=== PATIENT | female | born 1945 | race Caucasian/White ===

== ENCOUNTER → 2016-07-26 | Outpatient (CLI) | payer OTHER ==
[2016-07-26 13:51] LABS: THYROID STIMULATING HORMONE 0.212 uIu/ml (0.300-4.500)
== END | disposition home or self-care (01) ==
LOC: C.LABMFLN 10:28
PROVIDERS: ATTEND Family Medicine
DX: E78.00 Pure hypercholesterolemia, unspecified (principal); E89.0 Postprocedural hypothyroidism

== ENCOUNTER → 2016-09-16 | Outpatient (CLI) | payer OTHER | END | disposition home or self-care (01) | LOC: C.LABMFLN 12:18 | PROVIDERS: ATTEND Family Medicine | DX: E05.00 Thyrotoxicosis with diffuse goiter without thyrotoxic crisis or storm (principal) ==

== ENCOUNTER → 2016-12-12 | Outpatient (CLI) | payer OTHER ==
--- NOTE | 2016-12-12 10:38 | DIAGNOSTIC IMAGING REPORT ---
LUMBAR SPINE W/O CONTRAST CLINICAL HISTORY: 71-year-old female with history of right lumbar radiculopathy. TECHNIQUE: Multisequence, multiplanar MR imaging of the lumbar spine was performed without the use of intravenous contrast. COMPARISON: None. FINDINGS: Vertebral bodies maintain normal height, bone marrow signal intensity, and alignment. Intervertebral discs are preserved. No abnormal signal intensity within the disks or facet joints. Mild disc bulges present at L3-4 through L5-S1 with only mild mass effect on the ventral thecal sac. Additional multilevel degenerative changes as detailed below: T12-L1: Normal. L1-2: Normal. L2-3: Osseous excrescence arising from the right facet joint results in effacement of the right lateral recess and displacement of the cauda equina to the left. Mass effect on the transiting right nerve rootlets. Overall moderate spinal canal stenosis. Facet hypertrophy present without significant neural foraminal narrowing. L3-4: Facet arthropathy and ligamentum flavum hypertrophy in combination with the mild bulge result in mild bilateral neural foraminal narrowing. No significant spinal canal narrowing. L4-5: More severe facet arthropathy and ligamentum flavum hypertrophy in combination with the mild disc bulge result in mild to moderate bilateral neural foraminal narrowing, greater on the left. Abutment of the exiting left L4 nerve root. No significant spinal canal narrowing. L5-S1: Facet arthropathy in combination with mild disc bulge results in mild right and severe left neuroforaminal narrowing. Significant mass effect on the exiting left L5 nerve root. No significant spinal canal narrowing. The spinal cord ends in good position at L1. Cauda equina normal other than mass effect on the transiting right nerve rootlets as detailed above. Paraspinal soft tissues normal. Mild nonspecific infiltration of the subcutaneous tissue of the lower lumbar region. Extrahepatic biliary ductal dilatation noted with the common duct measuring up to 12 mm at the level of the pancreatic head. IMPRESSION: 1. Osseous excrescence arising from the right facet joint at L2-3 results in moderate spinal canal stenosis and mass effect on the transiting right nerve roots above. 2. Multilevel degenerative changes most severe at L4-5 and L5-S1 with varying degrees of neural foraminal narrowing as detailed above. Abutment of the exiting left L4 and L5 nerve roots. 3. Extrahepatic biliary ductal dilatation with the common duct measuring up to 12 mm at the level of the pancreatic head. This is incompletely evaluated. Electronically signed by: Douglas Welch M.D. 12/12/2016 10:37 AM Dictated Date/Time: 12/12/2016 10:25 AM
== END | disposition home or self-care (01) ==
LOC: C.MRIBC 09:24
PROVIDERS: ATTEND Family Medicine
DX: M54.16 Radiculopathy, lumbar region (principal); M48.06 Spinal stenosis, lumbar region; M47.816 Spondylosis without myelopathy or radiculopathy, lumbar region; M47.817 Spondylosis without myelopathy or radiculopathy, lumbosacral region

== ENCOUNTER → 2016-12-19 | Outpatient (CLI) | payer OTHER ==
--- NOTE | 2016-12-19 15:42 | MAMMOGRAPHY REPORT ---
BILATERAL DIGITAL SCREENING MAMMOGRAM TOMOSYNTHESIS WITH CAD: 12/19/2016 CLINICAL HISTORY: Routine screening. Patient has no complaints. TECHNIQUE: Breast tomosynthesis in addition to standard 2D mammography was performed. Current study was also evaluated with a Computer Aided Detection (CAD) system. COMPARISON: Comparison is made to exams dated: 12/14/2015 mammogram, 06/18/2013 mammogram, 06/06/2011 ma mmogram, 04/04/2010 mammogram, 04/03/2009 mammogram - [facility], and 03/31/2008. BREAST COMPOSITION: There are scattered areas of fibroglandular density in both breasts. FINDINGS: There are possible faint grouped microcalcifications in the central left breast, for which additional spot magnification views are recommended. There are a few other benign rim calcifications scattered in the breasts. No suspicious mass, develop ing asymmetry or architectural distortion. IMPRESSION: ACR BI-RADS CATEGORY 0: INCOMPLETE EVALUATION: NEED ADDITIONAL IMAGING EVALUATION The possible grouped microcalcifications in the left central breast need additional evaluation. The patient will be called to schedule an appointment. Approximately 10% of breast cancers are not detected with mammography. A negative mammographic report should not delay biopsy if a clinically suggestive mass is present. Nedra Mahoney M.D. ay/:12/19/2016 15:20:11 Wildlife Policy Professional: Marquita MAYORGA)(M), [facility] letter sent: Addl Imaging 0 BI-RADS Code: ACR BI-RADS Category 0: Incomplete Evaluation: Need Additional Imaging Evaluation
== END | disposition home or self-care (01) ==
LOC: C.MAMM 11:03
PROVIDERS: ATTEND Obstetrics & Gynecology
DX: Z12.31 Encounter for screening mammogram for malignant neoplasm of breast (principal)

== ENCOUNTER → 2016-12-27 | Outpatient (CLI) | payer OTHER | END | disposition home or self-care (01) | LOC: C.PAPS 15:29 | PROVIDERS: ATTEND Obstetrics & Gynecology | DX: Z12.4 Encounter for screening for malignant neoplasm of cervix (principal); N95.2 Postmenopausal atrophic vaginitis ==

== ENCOUNTER → 2017-01-01 | Outpatient (CLI) | payer OTHER ==
--- NOTE | 2017-01-01 13:43 | MAMMOGRAPHY REPORT ---
UNILATERAL LEFT DIGITAL DIAGNOSTIC MAMMOGRAM: 01/01/2017 CLINICAL HISTORY: 71 year-old woman called back from screening mammography for possible new microcalc ifications in the left breast. TECHNIQUE: Spot magnification left CC and ML views were obtained. COMPARISON: Comparison is made to exams dated: 12/19/2016 mammogram, 12/14/2015 mammogram, 06/18/2013 m ammogram, 06/06/2011 mammogram, 04/04/2010 mammogram, and 04/03/2009 mammogram - [facility]. BREAST COMPOSITION: There are scattered areas of fibroglandular density in the left breast. FINDINGS: There are 2 small groupings of punctate and amorphous microcalcifications. The first grou ping is located in the lower outer anterior left breast, measuring 2.6 mm, and the second loose group ing is in the central left breast measuring 5.5 mm. No associated architectural distortion or obviou s mass. When comparing back to prior available mammograms, these were not definitely seen on the bert or mammograms, particularly the 2013 mammogram. Definitive characterization with stereotactic guided biopsy 2 is recommended. IMPRESSION: ACR BI-RADS CATEGORY 4B: INTERMEDIATE SUSPICION FOR MALIGNANCY Left breast stereotactic guided biopsy 2 is recommended for new clusters of punctate microcalcificat ions in the central and lower outer anterior left breast. These results and recommendations were discussed with the patient at the time of the exam. She tenta tively scheduled the left breast stereotactic biopsies prior to leaving our department. Approximately 10% of breast cancers are not detected with mammography. A negative mammographic report should not delay biopsy if a clinically suggestive mass is present. Nedra Mahoney M.D. ay/:01/01/2017 11:50:12 Gleason Gear Generator: Marquita SMALL(Dominique)(Julia), [facility] letter sent: Abnormal 4/5 BI-RADS Code: ACR BI-RADS Category 4B: Intermediate Suspicion For Malignancy
== END | disposition home or self-care (01) ==
LOC: C.MAMM 10:50
PROVIDERS: ATTEND Obstetrics & Gynecology
DX: R92.0 Mammographic microcalcification found on diagnostic imaging of breast (principal)

== ENCOUNTER → 2017-01-22 | Outpatient (CLI) | payer OTHER ==
--- NOTE | 2017-01-22 09:25 | Discharge Instructions ---
Discharge Instructions Procedure Procedure Date: Jan 22, 2017. Reason for visit: Left Microcalcs. Discharge Discharge Date: Jan 22, 2017. Discharge Diagnosis: post left breast stereotactic guided biopsy x 2 Instructions Activity Recommendations: Additional Limitations (see below) Return to School/Work: no limitations Recommended Home Diet: No Limitations Provider Instructions: ACTIVITY RECOMMENDATIONS: * No lifting, pushing, pulling or exercising the affected side for three days. RETURN TO SCHOOL/WORK: * You may return to work/school after the procedure, but do not perform any strenuous activities for 24 to 48 hours. MEDICATIONS: * Tylenol (two 325 mg) every four to six hours if needed for mild pain (if not allergic to Tylenol). DIET: * Resume previous diet. SPECIAL CARE INSTRUCTIONS: * Keep biopsy site dry for 24 hours. May shower after 24 hours, but do not soak (bathe) incision. * May remove Tegaderm (plastic patch) tomorrow AFTER showering. * Leave the steri-strips on for one week. Allow the steri-strips to fall off by themselves. If not off after one week, you may remove them. You may place a Bandaid crosswise over the strips, if desired. * Apply ice 10 minutes on and 10 minutes off as needed. * Wear a bra at bedtime to sleep more comfortably for 2-3 days. * Your referring physician should have the results after approximately 5 to 7 business days. * Call for unusual bleeding, fever, drainage, etc or if you have any questions call [phone] during normal business hours or after hours call Dr Mahoney, . FOLLOW UP VISIT: Follow-up with Referring Physician as scheduled. [facility] Recommendations: Call your doctor if: * Temperature above 101 degrees * Pain not relieved by pain medicine ordered * There is increased drainage or redness from any incision * You have any unanswered questions or concerns. Your Doctors Instructions noted above were prepared by provider Nedra Mahoney. Patient Signature Section: Patient Instructions Signature Page Stephanie Smith Patient (or Guardian) Signature/Date: I have read and understand the instructions given to me by my caregivers. Caregiver/RN/Doctor Signature/Date: The above-named patient and/or guardian has received patient instructions on this date. + Original Patient Signature Page (only) stays with chart. Please make copy for patient.
--- NOTE | 2017-01-22 16:02 | MAMMOGRAPHY REPORT ---
UNILATERAL LEFT DIGITAL DIAGNOSTIC MAMMOGRAM TOMOSYNTHESIS: 01/22/2017 CLINICAL HISTORY: Status post left breast stereotactic guided biopsy 2. Please refer to the report from left breast stereotactic biopsy performed at the same time for full d etail. IMPRESSION: POST PROCEDURE IMAGING FOR MARKER PLACEMENT Please refer to the report from left breast stereotactic biopsy performed at the same time for full d etail. Approximately 10% of breast cancers are not detected with mammography. A negative mammographic report should not delay biopsy if a clinically suggestive mass is present. Nedra Mahoney M.D. ay/:01/22/2017 09:41:03 Senior Systems Software Engineer: Emily SMALL(R)(M), [facility] BI-RADS Code: Post Procedure Imaging For Marker Placement
--- NOTE | 2017-01-22 16:02 | MAMMOGRAPHY REPORT ---
STEREOTACTIC GUIDED BIOPSY: 01/22/2017 CLINICAL HISTORY: 2 clusters of indeterminate microcalcifications in the lower outer anterior left br east and central left breast. Patient presented for stereotactic biopsy 2. Please refer to the report from left breast stereotactic biopsy performed at the same time for full d etail. IMPRESSION: STEREOTACTIC GUIDED BIOPSY Please refer to the report from left breast stereotactic biopsy performed at the same time for full d etail. Nedra Mahoney M.D. ay/:01/22/2017 09:40:26 Baseball Umpire For [employer]: Emily SMALL(Dominique)(M), [facility]
--- NOTE | 2017-01-22 16:02 | MAMMOGRAPHY REPORT ---
MULTIPLE STEREOTACTIC GUIDED BIOPSIES LEFT BREAST: 01/22/2017 CLINICAL HISTORY: 2 clusters of indeterminate faint punctate microcalcifications in the central left breast and lower outer anterior breast. Patient presented for stereotactic guided biopsy 2. PATIENT CONSENT: After explaining the risks, benefits and alternatives of the procedure to the patien t, informed consent was obtained both verbally and in writing. Specific risks include: Bleeding, inf ection, puncture of adjacent structure, pain, nontarget biopsy, sampling error, metal allergy and med ication reaction. PROCEDURE DESCRIPTION: A time-out was performed and the left breast was confirmed as the site of biop sy. The patient was placed prone on the stereotactic biopsy table and the breast was placed in CC fro m below compression. A physician office rep image was obtained that demonstrated both clusters of calcifications in question. They are amenable to sterotactic biopsy. Then +15 and -15 stereo pair images were obtain ed. First, the microcalcifications in the central left breast were identified and targeted for biops y, utilizing the coordinates obtained by the computer. The skin was prepped with Betadine. 1% Lidoca ine with and without epinipherine was administered as local anesthesia. A small skin incision was mad e. Through the incision, the needle was inserted to the depth determined by the computer. 6 samples were obtained using a [employer] Eviva 9-gauge vacuum-assisted biopsy device. The specimen radiograph demo nstrated a paucity of calcifications in the samples therefore 6 additional core biopsy samples were o btained. The second round of samples demonstrated several hardware supplies sales representative microcalcifications, theref ore, a dumbbell shaped metallic marker was placed at the biopsy site. There was no immediate complica tion. Hemostasis was achieved after several minutes of manual compression. The samples were sent to pathology in two appropriately labeled containers, "with calcifications" and "without calcifications" . All of the samples were obtained from the same single biopsy site. Then the faint clustered punctate microcalcifications in the lower outer anterior left breast were id entified and targeted for biopsy. Additional 1% buffered lidocaine with and without epinephrine was administered. A small skin incision was made. Through the incision, the needle was inserted to the d epth determined by the computer. 7 samples were obtained using a [employer] Eviva 9-gauge vacuum-assisted biopsy device. The specimen radiograph demonstrated several hardware supplies sales representative microcalcifications theref ore a T-shaped metallic biopsy marker was placed at the site. There was no immediate complication. Hemostasis was achieved after several minutes of manual compression. The samples were sent to the pa thology department in one appropriately labeled container, as a few punctate calcifications were seen within multiple samples. The patient tolerated the procedures well and there was no immediate compl ication. She left the department in satisfactory condition. Postprocedure CC and ML views of the left breast were obtained. Metallic biopsy markers are identif ied in the middle one third and anterior one third of the left breast, denoting the sites of stereota ctic guided biopsy. No large postbiopsy hematoma is identified. IMPRESSION: STEREOTACTIC GUIDED BIOPSY Status post left breast stereotactic guided biopsy 2. The patient will receive notification of the biopsy results from her referring physician. Nedra Mahoney M.D. ay/:01/22/2017 10:44:02 Director Of Patient Safety: Emily MAYORGA)(Julia), [facility]
== END | disposition home or self-care (01) ==
LOC: C.MAMM 07:43
PROVIDERS: ATTEND Obstetrics & Gynecology
DX: R92.0 Mammographic microcalcification found on diagnostic imaging of breast (principal); N60.12 Diffuse cystic mastopathy of left breast

== ENCOUNTER → 2017-02-07 | Outpatient (CLI) | payer OTHER ==
[2017-02-07 18:02] LABS: ALT/SGPT 21 U/L (12-78); AST/SGOT 15 U/L (15-37); BLOOD UREA NITROGEN 12 mg/dl (7-18); BUN/CREATININE RATIO 12.5 (10-20); CALCIUM 8.8 mg/dl (8.5-10.1); CARBON DIOXIDE 28 mmol/L (21-32); CHLORIDE 104 mmol/L (98-107); CREATININE 0.93 mg/dl (0.60-1.20); GLUCOSE 133 mg/dl (70-99); MAGNESIUM 1.9 mg/dl (1.8-2.4); POTASSIUM 3.8 mmol/L (3.5-5.1); SODIUM 138 mmol/L (136-145)
[2017-02-07 18:13] LABS: CHOLESTEROL 206 mg/dl (0-200); CHOLESTEROL/HDL RATIO 2.6; HDL CHOLESTEROL 79 mg/dl; LDL CHOLESTEROL CALCULATED 99 mg/dl; TRIGLYCERIDES 140 mg/dl (0-150); VERY LOW DENSITY LIPOPROT CALC 28 mg/dl
== END | disposition home or self-care (01) ==
LOC: C.LABMFLN 13:45
PROVIDERS: ATTEND Family Medicine
DX: E78.00 Pure hypercholesterolemia, unspecified (principal); E89.0 Postprocedural hypothyroidism; E55.9 Vitamin D deficiency, unspecified; E83.42 Hypomagnesemia

== ENCOUNTER → 2017-02-12 | Outpatient (CLI) | payer OTHER ==
[2017-02-12 13:02] LABS: BASO % 1.3 %; BASO ABS # 0.06 K/uL (0-0.2); COMPLETE YES; EOS % 2.9 %; HEMATOCRIT 35.9 % (37-47); LYMPH ABS # 1.18 K/uL (1.2-3.4); MEAN CELL VOLUME 86.9 fL (80-100); MEAN CORPUSCULAR HEMOGLOBIN 28.8 pg (25-34); MEAN CORPUSCULAR HGB CONC 33.1 g/dl (32-36); MEAN PLATELET VOLUME 10.4 fL (7.4-10.4); MONO % 14.6 %; NEUT % 55.2 %; PLATELET COUNT 261 K/uL (130-400); RED BLOOD COUNT 4.13 M/uL (4.2-5.4); WHITE BLOOD COUNT 4.53 K/uL (4.8-10.8)
[2017-02-12 19:52] LABS: TOTAL IRON BINDING CAPACITY 390 mcg/dl (250-450)
--- NOTE | 2017-02-24 13:14 | CODING QUERY MEDICAL NECESSITY ---
CQSUPPORTING DIAGNOSIS NEEDED A supporting diagnosis is required for the test/procedure performed on this patient in order for us to be reimbursed by the patient's insurance. Please provide a supporting diagnosis for the following test/procedure listed below next to the test name along with your signature. *If there is no additional diagnosis for this patient that would support the following test/procedure please document that below next to the test/procedure. Test(s)/Procedure(s) that require a supporting diagnosis: DOS 02/12/17 VITAMIN B12 TEST FOLIC ACID TEST SERUM IRON STUDIES Health Information Management Once completed, please kindly fax back to [phone] For questions please call [phone]
== END | disposition home or self-care (01) ==
LOC: C.LABMFLN 10:33
PROVIDERS: ATTEND Family Medicine
DX: R53.83 Other fatigue (principal)

== ENCOUNTER → 2017-08-08 | Outpatient (CLI) | payer OTHER ==
--- NOTE | 2017-08-08 13:54 | MAMMOGRAPHY REPORT ---
UNILATERAL LEFT DIGITAL DIAGNOSTIC MAMMOGRAM TOMOSYNTHESIS WITH CAD: 08/08/2017 CLINICAL HISTORY: Recent stereotactic biopsy of 2 clusters of calcifications in the left breast perfo rmed December 2016, which yielded benign pathology. The patient presents for short interval follow-up after the biopsies. TECHNIQUE: Breast tomosynthesis in addition to standard 2D mammography was performed. Current study was also evaluated with a Computer Aided Detection (CAD) system. Left CC and MLO 2D and tomosynthesi s images and spot magnification left CC and MLO views were obtained. COMPARISON: Comparison is made to exams dated: 01/22/2017 stereotactic biopsy, 01/22/2017 stereotactic biopsy, 01/22/2017 mammogram, 01/01/2017 mammogram, 12/19/2016 mammogram, and 12/14/2015 mammogram - [facility]. BREAST COMPOSITION: There are scattered areas of fibroglandular density in the left breast. FINDINGS: There are 2 biopsy marker clips in the left breast from prior benign stereotactic biopsies, one in the left 12:00 breast and the other in the left lower outer quadrant/central breast. Spot ma gnification views demonstrate a few residual calcifications at the biopsy site in the left 12:[address] No new or increasing calcifications are seen at either biopsy site. Given the benign pathology o n biopsies, findings are benign and no further follow-up is needed. The remainder of the left breas t is stable compared to prior exams, without suspicious masses, calcifications, or areas of oim architect ural distortion. IMPRESSION: ACR BI-RADS CATEGORY 2: BENIGN There is no mammographic evidence of malignancy in the left breast. Return to annual mammogram screen ing schedule is recommended, due November 2017. The patient has been verbally notified of the results. Approximately 10% of breast cancers are not detected with mammography. A negative mammographic report should not delay biopsy if a clinically suggestive mass is present. Malissa Argueta M.D. ah/:08/08/2017 11:47:46 Baggage Handler: Jean MAYORGA)(M), [facility] letter sent: Normal 1/2 BI-RADS Code: ACR BI-RADS Category 2: Benign
== END | disposition home or self-care (01) ==
LOC: C.MAMM 10:58
PROVIDERS: ATTEND Obstetrics & Gynecology
DX: R92.8 Other abnormal and inconclusive findings on diagnostic imaging of breast (principal)

== ENCOUNTER → 2017-08-14 | Outpatient (CLI) | payer OTHER ==
[2017-08-14 12:59] LABS: T3 FREE 3.04 pg/ml (2.30-4.20)
[2017-08-14 13:12] LABS: ALBUMIN 4.2 gm/dl (3.4-5.0); ALT/SGPT 21 U/L (12-78); BLOOD UREA NITROGEN 13 mg/dl (7-18); CALCIUM 9.6 mg/dl (8.5-10.1); CARBON DIOXIDE 25 mmol/L (21-32); CHOLESTEROL 230 mg/dl (0-200); CREATININE 0.85 mg/dl (0.60-1.20); GLUCOSE 93 mg/dl (70-99); SODIUM 137 mmol/L (136-145)
[2017-08-14 13:23] LABS: ALKALINE PHOSPHATASE 48 U/L (45-117); AST/SGOT 19 U/L (15-37); LDL CHOLESTEROL CALCULATED 132 mg/dl; TOTAL PROTEIN 7.9 gm/dl (6.4-8.2)
== END | disposition home or self-care (01) ==
LOC: C.LABMFLN 08:49
PROVIDERS: ATTEND Family Medicine
DX: E78.00 Pure hypercholesterolemia, unspecified (principal); E89.0 Postprocedural hypothyroidism; E55.9 Vitamin D deficiency, unspecified; E83.42 Hypomagnesemia; E83.39 Other disorders of phosphorus metabolism

== ENCOUNTER → 2017-09-09 | Outpatient (CLI) | payer OTHER | END | disposition home or self-care (01) | LOC: C.LABMFLN 15:20 | PROVIDERS: ATTEND Family Medicine | DX: M79.606 Pain in leg, unspecified (principal) ==